=== PATIENT | male | born 1965 | race Caucasian/White ===

== ENCOUNTER 2017-09-17 12:11 | Inpatient (IN) ==
[~2017-09-17 12:11] MED LIST: Glycopyrrolate Inj 1 MG/5 ML Syringe IV.PUSH ONE; Lidocaine PF 1% Inj 5 ML Syringe INFILTRATN ONE; Neostigmine Inj 5 MG/5 ML Syringe IV.PUSH ONE; Phenylephrine/NS 1000 MCG/10ML Syringe IV.PUSH ONE
[2017-09-17] MEDS ORDERED: Chlorhexidine Gluconate 2% 1 Pack (2 Cloths) TOPICAL SCH (12:45)
[2017-09-17] MEDS ORDERED: Metoprolol Tartrate 25 MG Tablet PO SCH (12:45)
[2017-09-17] MEDS ORDERED: Vancomycin Inj 1 GM/200 ML PIGGYBACK IV.SIG ONE (12:52)
[2017-09-17] MEDS ORDERED: ceFAZolin Inj 2,000 MG in Sodium Chlor 0.9% Inj 100 ML IV.SIG SCH (12:58)
[2017-09-17] MEDS ORDERED: Chlorhexidine 4% Topical 120 APPLIC/120 ML Bottle TOPICAL SCH (13:00)
[2017-09-17] MEDS ORDERED: Sodium Chlor 0.9% Inj 500 ML IV.SIG SCH (13:00)
[2017-09-17] MEDS ORDERED: Vancomycin Inj 1 GM/200 ML PIGGYBACK IV.SIG SCH (13:00)
[2017-09-17] MEDS ORDERED: Zolpidem Tartrate 5 MG Tablet PO PRN (16:34)
[2017-09-17] MEDS ORDERED: Bisacodyl 10 MG Supp RECTAL PRN (16:34)
[2017-09-17] MEDS ORDERED: Post-op Orders (for Pharmacy) OTHER STA (16:34)
[2017-09-17] MEDS ORDERED: *Meperidine Inj 25 MG/ML Vial PERIprocedural Use ONLY ONE (16:42)
--- NOTE | 2017-09-17 16:45 | P.DCO ---
- Physical Therapy Physical Therapy: Gait training, Transfer training, bed to chair Hip: Total hip, Protocol: Left, Posterior hip precautions Knee: Protocol: Left, Full weight bearing Canvas Knee Splint: When in bed with 2 pillows between thighs Right Lower Extremity Weight Bearing: Weight bearing as tolerated Left Lower Extremity Weight Bearing: Weight bearing as tolerated - Nursing RN: 3 days/week x 2 weeks Nursing: Dressing changes (clean incision with alcohol and apply dry sterile dressing ) Additional instructions: aspirin 81 mg bid x 4 weeks dvt prop - Certification Need for Home Health services: I have seen patient Luther Juarez on 09/17/17. My clinical findings support the need for the requested home health care services because: Need for Home Health Services: High risk of falls Homebound Certification: I certify that my clinical findings support that this patient is homebound because: Homebound Certification: Post-op weakness
[2017-09-17] MEDS ORDERED: fentaNYL Citrate Inj 100 MCG/2 ML Ampul ONE (16:50)
[2017-09-17] MEDS ORDERED: *morphine SULFATE 4 MG/ML PERIprocedure ONLY ONE (16:54)
--- NOTE | 2017-09-17 17:24 | XR ---
EXAM DATE: 09/17/2017 5:04 PM EDT AGE/SEX: 52 years / Male INDICATIONS: Post left hip arthroplasty CLINICAL DATA: This is the patient's initial encounter. Patient reports that signs and symptoms have been present for 1 day and indicates a pain score of 3/10. MEDICAL/SURGICAL HISTORY: Arthritis. None. COMPARISON: No prior exams available for comparison. FINDINGS: Postoperative left total hip replacement. Normal alignment. No complications identified. Air in the s oft tissues. Previous fusion lower lumbar spine. CONCLUSION: Postoperative left total hip replacement. Normal alignment. Electronically signed by: Jeet Cuevas MD 09/17/2017 5:22 PM EDT
[2017-09-17] MEDS ORDERED: Dextrose 50% in Water 50 ML Vial IV.PUSH PRN (17:40)
[2017-09-17] MEDS: Senna/Docusate Sodium 8.6/50 MG Tablet PO SCH (21:06)
[2017-09-17] MEDS: Morphine Inj 4 MG/ML Vial IV.PUSH PRN (21:26)
[2017-09-18] MEDS: Morphine Inj 4 MG/ML Vial IV.PUSH PRN ×5 (01:48→20:54)
[2017-09-18 06:44] LABS: Baso # (Auto) 0.1 th/mm3 (0.0-0.2); Baso % (Auto) 0.8 % (0.0-2.0); Eos # (Auto) 0.1 th/mm3 (0.0-0.4); Eos % (Auto) 0.7 % (0.0-4.0); Hematocrit 35.2 % (39.0-51.0); Hemoglobin 12.2 gm/dL (13.0-17.0); Lymph % (Auto) 24.1 % (9.0-44.0); Mean Corpuscular HGB Conc 34.6 % (32.0-36.0); Mean Corpuscular Hemoglobin 33.1 pg (27.0-34.0); Mean Corpuscular Volume 95.8 fL (80.0-100.0); Mean Platelet Volume 9.1 fL (7.0-11.0); Mono # (Auto) 0.8 th/mm3 (0.0-0.9); Mono % (Auto) 9.9 % (0.0-8.0); Neut # (Auto) 5.5 th/mm3 (1.8-7.7); Neut % (Auto) 64.5 % (16.0-70.0); Platelet Count 168 th/mm3 (150-450); Red Blood Count 3.68 mil/mm3 (4.50-5.90); Red Cell Distribution Width 13.3 % (11.6-17.2); White Blood Count 8.5 th/mm3 (4.0-11.0)
[2017-09-18 07:01] LABS: Albumin 3.2 g/dL (3.4-5.0); Anion Gap 7 meq/L (5-15); Aspartate Aminotransferase 49 U/L (15-37); Blood Urea Nitrogen 17 mg/dL (7-18); Calcium 8.4 mg/dL (8.5-10.1); Carbon Dioxide 30.3 meq/L (21.0-32.0); Chloride 98 meq/L (98-107); Glomerular Filtration Rate 67 mL/min (>89); Glucose,Random 154 mg/dL (74-106); Potassium 4.1 meq/L (3.5-5.1); Sodium 135 meq/L (136-145)
[2017-09-18 07:06] LABS: Alanine Aminotransferase 81 U/L (12-78); Alkaline Phosphatase 51 U/L (45-117); Creatine Kinase 262 U/L (39-308); Total Protein 6.2 g/dL (6.4-8.2)
--- NOTE | 2017-09-18 07:09 | P.PNOP ---
Subjective Interval history: POD#1 L THR No chest pain;No SOB Patient wishes to go home today Physical Exam Vital signs: Vital Signs 09/17/17 13:07 09/17/17 16:41 09/17/17 17:12 Temperature 98.8 F 98.6 F Pulse Rate 78 88 88 Respiratory Rate 16 16 16 Blood Pressure 117/75 129/83 107/58 L Pulse Oximetry 95 95 95 09/17/17 17:50 09/17/17 19:17 09/17/17 23:29 Temperature 97.4 F L 97.4 F L 98.5 F Pulse Rate 74 72 63 Respiratory Rate 18 18 18 Blood Pressure 88/55 L 110/64 120/64 Pulse Oximetry 98 100 97 09/18/17 05:23 Temperature 98.4 F Pulse Rate 72 Respiratory Rate 18 Blood Pressure 106/56 L Pulse Oximetry 97 Intake & Output 09/17/17 09/17/17 09/18/17 06:59 18:59 06:59 Intake Total 1200 / 1200 820 / 820 Output Total 250 / 250 Balance 950 / 950 820 / 820 Weight 98.4 kg 98.4 kg Intake: IV 1200 / 1200 100 / 100 LR 1000 mL Inj 1,000 ML @ 30 1000 / 1000 mls/hr IV.SIG .Q24H NAVARRO Rx#: [id number] Vancomycin Inj 1 gm In 200 ml @ 200 / 200 0 mls/hr IV.SIG .STK-MED ONE Rx#:[id number] Ancef Inj 1,000 MG In NS Inj 100 / 100 100 ML @ 200 mls/hr IV.SIG Q6H [facility]ARRO Rx#:[id number] Oral 720 / 720 Output: Estimated Blood Loss 250 / 250 Other: # Voids 3 Date of Last Bowel Movement 09/16/17 # Incontinent Bowel Movements 0 Weight On Admission 98.4 kg - Routine HEENT Exam Comments: N/V intact No LLD Neg anisha's;no calf tenderness Results - Labs CBC & Chem 7: 09/18/17 05:04 09/18/17 05:04 Laboratory Results - last 24 hr 09/17/17 09/17/17 09/17/17 12:48 16:57 19:48 WBC RBC Hgb Hct MCV MCH MCHC RDW Plt Count MPV Neut % (Auto) Lymph % (Auto) [place] % (Auto) Eos % (Auto) Baso % (Auto) Neut # (Auto) Lymph # (Auto) [place] # (Auto) Eos # (Auto) Baso # (Auto) WBC Differential Differential Comment POC Glucose 174 H 174 H Blood Type O Positive Antibody Screen Negative MTS Gel Crossmatch See Detail 09/18/17 05:04 WBC 8.5 RBC 3.68 L Hgb 12.2 L Hct 35.2 L MCV 95.8 MCH 33.1 MCHC 34.6 RDW 13.3 Plt Count 168 MPV 9.1 Neut % (Auto) 64.5 Lymph % (Auto) 24.1 [place] % (Auto) 9.9 H Eos % (Auto) 0.7 Baso % (Auto) 0.8 Neut # (Auto) 5.5 Lymph # (Auto) 2.0 [place] # (Auto) 0.8 Eos # (Auto) 0.1 Baso # (Auto) 0.1 WBC Differential . Differential Comment Auto diff final POC Glucose Blood Type Antibody Screen MTS Gel Crossmatch - Imaging Impressions Hip X-Ray 09/17/17 00:00 CONCLUSION: Postoperative left total hip replacement. Normal alignment. Assessment and Plan - Problem List (1) Osteoarthritis of left hip Code(s): M16.12 - Unilateral primary osteoarthritis, left hip Status: Acute - Assessment and Plan Ortho stable Discharge home today C RN/PT Aspirin 81mg BID x 4 weeks,TEDS for DVT/PE prophylaxsis
[2017-09-18 07:19] LABS: Creatine Kinase MB 1.8 ng/mL (0.5-3.6)
[2017-09-18] MEDS: Insulin NovoLOG Aspart Correctional Sugar Inj SQ SCH ×3 (08:19→20:38)
[2017-09-18] MEDS: Glimepiride 2 MG Tablet PO SCH (08:50)
[2017-09-18] MEDS: Senna/Docusate Sodium 8.6/50 MG Tablet PO SCH ×2 (08:50→20:43)
[2017-09-18] MEDS: Multivitamin/Minerals Therapeutic Tablet PO SCH (08:50)
[2017-09-18] MEDS: Triamterene/HCTZ 37.5 MG/25 MG Tablet PO SCH (08:51)
[2017-09-18] MEDS: amLODIPine 5 MG Tablet PO SCH (08:52)
[2017-09-18] MEDS: hydrALAZINE 25 MG Tablet PO SCH (08:52)
[2017-09-18] MEDS ORDERED: Lisinopril 20 MG Tablet PO SCH (09:00)
--- NOTE | 2017-09-18 09:19 | MP ---
cc: Ceasar North MD,Tierra Barger, III,Kasey Lawton DATE OF OPERATION: 09/17/2017 PREOPERATIVE DIAGNOSES: 1. Left hip severe osteoarthritis. 2. Obesity. POSTOPERATIVE DIAGNOSES: 1. Left hip severe osteoarthritis. 2. Obesity. PROCEDURE PERFORMED: Left total hip arthroplasty. SURGEON: Ceasar North MD GARMENT PATTERNMAKER: Ashtyn Mandujano PA-C ANESTHESIA: General. ESTIMATED BLOOD LOSS: 250 mL COMPLICATIONS: None. DRAINS: None. My educational/development assistant, Ashtyn Mandujano PA-C, was present for the entirety of the surgical case. She was medically necessary for the entire case given the complexity of case and to facilitate the performance of the procedure, the seed laboratory technician was at the back table with this case and was not able to manipulate the instruments needed to use such as retractors, trial implants and permanent implants. DESCRIPTION OF PROCEDURE: The patient was brought to the operating room and had satisfactory anesthesia by the Department of Anesthesia. The patient was placed in the lateral decubitus position. Because of the patient's obesity, great care was made to protect all pressure points. The left hip and lower extremity was prepped and draped in the usual sterile manner. Small posterolateral exposure to the hip was made. All bleeders were coagulated. Dissection of skin and subcutaneous tissue. The fascia sara and gluteus polo were incised in line with the skin incision. The short external rotators removed and gripped. Hip abductors were preserved. Hip capsulotomy performed. The hip was dislocated posteriorly. The patient was found to have severe osteoarthritis involving the hip joint. The preparation to the acetabulum made. Surgical removal of the acetabular labrum and capsule was performed. Multiple hemispherical reamers were then used to initially deepen the acetabulum and then widened it down to the subchondral plate. A trial reduction was made with a 53 mm bicentric cup in a press-fit type manner, was found to have an excellent fit and fill. Exposure and surgical treatment of the proximal femur was performed. Using the [employer] system, it was sequentially broached to a #12 broach. Standard offset, 0 neck, 28 mm ball was then used onto the trunnion. The hip was reduced. The patient was found to have satisfactory limb lengths, satisfactory stability and satisfactory range of motion of the hip. The hip was again dislocated posteriorly and all trial components were removed. Preparation for insertion of the prosthesis was made. The hip wound was irrigated with copious amounts of sterile saline, antibiotic solution, using Waterpik irrigation system. A 12 standard offset stem placed in anatomic position, approximately 15 degrees of anteversion, with excellent fit and fill. A -3 neck, 28 mm ceramic head was then used and assembled onto the trunnion with the 53 mm cup. The hip was then reduced. Again, the patient was found to have satisfactory limb lengths, satisfactory range of motion and satisfactory stability to the hip. The wound was irrigated with copious amounts of sterile saline, antibiotic solution. The wound was dry. The short external rotators were repaired as a group back to greater trochanter with drill holes using #2 Ti-Cron suture. Fascia sara was closed in line with the skin incision with #2 Ti-Cron suture. Subcuticular layers with 0 Vicryl and 2-0 Vicryl. Skin was approximated with running subcuticular 2-0 nylon suture. Sterile dressings were applied. The patient tolerated the procedure well, brought to recovery room in stable and satisfactory condition. MD ALEM Zamora/MANUEL , 04:30 PM , 04:40 PM DONOVAN
--- NOTE | 2017-09-18 13:01 | P.CON ---
History of Present Illness Service: [facility]/HEPAs Consult date: 09/17/17 Requesting Physician: Ashtyn Mandujano Reason for Consult: Medical management Primary Care Provider: PROVIDER NON STAFF Family Provider: PROVIDER NON STAFF Chief Complaint: "I had a hip replacement" History of Present Illness: 52-year-old male with past medical history significant for arthritis, HTN, HLD, diabetes, and GERD. Patient with severe left hip osteoarthritis status post total left hip arthroplasty on 09/17 by . [facility] consulted due to assist with medical management. Patient is seen and examined sitting up up in bed in no acute distress. Patient reports some hip pain but states this is tolerable. He has been able to get in and out of bed with assistance and has been using the bathroom without any diarrhea, constipation, or dysuria. He denies any fevers, chills, nausea, vomiting, headache, dizziness, cough, shortness of breath or chest pain. Spoke with nurse reports patient noncompliant with Accu- Cheks. Patient takes metformin and glipizide at home. Possible discharge home today pending delivery of bedside commode in wheeled walker to his room today. Review of Systems All other systems reviewed negative except as stated in HPI PMFSH - History History Provided By: Patient - Medical History Medical History: Medical History (Last Reviewed 09/18/17 @ 14:05 by Negra Keenan) Arthritis Dental crown present Diabetes GERD (gastroesophageal reflux disease) Hard of hearing Hyperlipidemia Hypertension Joint pain Wears eyeglasses - Surgical History Surgical History: Surgical History (Last Reviewed 09/18/17 @ 14:05 by Negra Keenan) History of lumbar fusion - Tobacco History Second Hand Smoke Exposure: No Tobacco Use In Past 30 Days: Yes Smoking Status: Heavy tobacco smoker Tobacco Type: Cigarettes - Alcohol History How Often Do You Have a Drink Containing Alcohol: 2 to 3 times a week - Substance Use History Substance History: No History of Abuse - Immunization History Tetanus Immunization: Unsure Hx Influenza Vaccine This Season: No Medications and Allergies Active Medications: Active Medications Hydrocodone Bitart/Acetaminophen ([place] 7.5/325) 2 tab PO Q6H PRN PRN Reason: PAIN SCALE 5 TO 10 Last Admin: 09/18/17 11:58 Dose: 2 tab Hydrocodone Bitart/Acetaminophen ([place] 7.5/325) 1 tab PO Q4H PRN PRN Reason: PAIN LESS THAN 5 ON SCALE Last Admin: 09/18/17 08:45 Dose: 1 tab Al Hydroxide/Mg Hydroxide (Milk Of Magntita Liq) 30 ml PO BID PRN PRN Reason: Mild Constipation Amlodipine Besylate (Norvasc) 2.5 mg PO DAILY [facility] Last Admin: 09/18/17 08:52 Dose: 2.5 mg Aspirin (Aspirin Chew) 81 mg PO BID [facility] Last Admin: 09/18/17 08:51 Dose: 81 mg Atorvastatin Calcium (Lipitor) 10 mg PO EVERY OTHER DAY [facility] Bisacodyl (Dulcolax Supp) 10 mg RECTAL DAILY PRN PRN Reason: SEVERE CONSITIPATION Chlorhexidine Gluconate (Chlorhexidine 2% Cloth) 3 pack [employer]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 [facility] Stop: 09/20/17 12:44 Last Admin: 09/17/17 12:30 Dose: 3 pack Chlorhexidine Gluconate (Hibiclens 4% Topical) 1 applicatio TOPICAL ONCE [facility] Stop: 09/21/17 12:59 Last Admin: 09/17/17 12:45 Dose: 1 applicatio Dextrose (D50w Vial) 50 ml IV.PUSH UNSCH PRN PRN Reason: PER HYPOGLYCEMIA PROTOCOL [facility] ([facility] Last Admin: 09/18/17 08:50 Dose: 2 mg Glucagon (Glucagon Inj) 1 mg OTHER PRN PRN PRN Reason: for Hypoglycemia Protocol Hydralazine HCl (Apresoline) 25 mg PO DAILY [facility] Last Admin: 09/18/17 08:52 Dose: 25 mg Lactated Ringer's (Lr 1000 Ml Inj) 1,000 mls @ 30 mls/hr IV.SIG .Q24H [facility] Stop: 09/20/17 12:44 Last Admin: 09/18/17 08:17 Dose: Not Given Sodium Chloride (Ns Inj) 500 mls @ 30 mls/hr IV.SIG .Q10H [facility] Stop: 09/20/17 12:44 Vancomycin/Sodium Chloride (Vancomycin Inj) 1 gm in 200 mls @ 200 mls/hr IV.SIG [employer] [facility] Stop: 09/21/17 12:59 Cefazolin Sodium 2,000 mg/ (Sodium Chloride) 120 mls @ 240 mls/hr IV.SIG [employer] [facility] Stop: 09/21/17 12:57 Insulin Aspart (Novolog Insulin Correctional Sugar Inj) 0 unit SQ ACHS [facility]; Protocol Last Admin: 09/18/17 09:11 Dose: Not Given Lactulose (Lactulose Liq) 30 ml PO DAILY PRN PRN Reason: SEVERE CONSITIPATION Lisinopril (Prinivil) 40 mg PO DAILY [facility] Last Admin: 09/18/17 08:50 Dose: 40 mg Metformin HCl (Glucophage) 1,000 mg PO BID [facility] Last Admin: 09/18/17 08:50 Dose: 1,000 mg Metoprolol Tartrate (Lopressor) 25 mg PO [employer] [facility] Stop: 09/20/17 12:44 Miscellaneous (Pill Splitter) 1 each OTHER UNSCH [facility] Miscellaneous Information ([facility]) 1 each OTHER UNSCH PRN PRN Reason: SEE LABEL COMMENTS Stop: 09/18/17 17:04 Morphine Sulfate (Morphine Inj) 4 mg IV.PUSH Q3H PRN PRN Reason: BREAKTHROUGH PAIN Last Admin: 09/18/17 10:42 Dose: 4 mg Multivitamins/Minerals (Theragran-M) 1 tab PO DAILY [facility] Last Admin: 09/18/17 08:50 Dose: 1 tab Pantoprazole Sodium (Protonix) 40 mg PO DAILY [facility] Last Admin: 09/18/17 08:52 Dose: 40 mg Senna/Docusate Sodium (Kassy-Colace) 1 tab PO BID [facility] Last Admin: 09/18/17 08:50 Dose: 1 tab Sennosides (Senokot) 17.2 mg PO BID PRN PRN Reason: Moderate Constipation Sodium Chloride (Ns Flush) 2 ml IV.FLUSH BID [facility] Last Admin: 09/18/17 08:54 Dose: 2 ml Sodium Chloride (Ns Flush) 2 ml IV.FLUSH PRN PRN PRN Reason: FLUSH AFTER USING IV ACCESS Triamterene/HCTZ (Maxzide 37.5 Mg-25 Mg) 1 tab PO DAILY [facility] Last Admin: 09/18/17 08:51 Dose: 1 tab Zolpidem Tartrate (Ambien) 5 mg PO HS PRN PRN Reason: INSOMNIA Allergies Allergy/AdvReac Type Severity Reaction Status Date / Time Iodinated Contrast- Oral and Allergy Severe Flushing Verified 09/17/17 12:59 IV Dye [Contrast] Home Medications Medication Instructions Recorded Confirmed Type amlodipine 2.5 mg PO DAILY 09/14/17 09/17/17 History atorvastatin [Lipitor] 1 tab PO EVERY OTHER DAY 09/14/17 09/17/17 History glimepiride 2 mg PO QAM 09/14/17 09/17/17 History hydralazine 25 mg PO DAILY 09/14/17 09/17/17 History lisinopril 40 mg PO DAILY 09/14/17 09/17/17 History meloxicam 15 mg PO DAILY 09/14/17 09/17/17 History metformin 1,000 mg PO BID 09/14/17 09/17/17 History pantoprazole 40 mg PO DAILY 09/14/17 09/17/17 History triamterene-hydrochlorothiazid 1 tab PO DAILY 09/14/17 09/17/17 History multivit with min-folic acid 1 tab PO DAILY 09/17/17 09/17/17 History [Adult One Daily Multivitamin] Physical Exam Vital signs: Vital Signs 09/17/17 13:07 09/17/17 16:41 09/17/17 17:12 Temperature 37.1 C 37.0 C Pulse Rate 78 88 88 Respiratory Rate 16 16 16 Blood Pressure 117/75 129/83 107/58 L Pulse Oximetry 95 95 95 09/17/17 17:50 09/17/17 19:17 09/17/17 23:29 Temperature 36.3 C L 36.3 C L 36.9 C Pulse Rate 74 72 63 Respiratory Rate 18 18 18 Blood Pressure 88/55 L 110/64 120/64 Pulse Oximetry 98 100 97 09/18/17 05:23 09/18/17 08:00 09/18/17 12:00 Temperature 36.9 C 37.1 C 36.8 C Pulse Rate 72 73 81 Respiratory Rate 18 16 16 Blood Pressure 106/56 L 106/56 L 104/59 L Pulse Oximetry 97 97 97 Intake & Output 09/17/17 09/18/17 09/18/17 18:59 06:59 18:59 Intake Total 1200 / 1200 920 / 920 Output Total 250 / 250 Balance 950 / 950 920 / 920 Weight 98.4 kg 98.4 kg Intake: IV 1200 / 1200 200 / 200 LR 1000 mL Inj 1,000 ML @ 30 1000 / 1000 mls/hr IV.SIG .Q24H [facility]ARRO Rx#: [id number] Vancomycin Inj 1 gm In 200 ml @ 200 / 200 0 mls/hr IV.SIG .STK-MED ONE Rx#:[id number] Ancef Inj 1,000 MG In NS Inj 200 / 200 100 ML @ 200 mls/hr IV.SIG Q6H [facility]ARRO Rx#:[id number] Oral 720 / 720 Output: Estimated Blood Loss 250 / 250 Other: # Voids 3 Date of Last Bowel Movement 09/16/17 # Incontinent Bowel Movements 0 Weight On Admission 98.4 kg Narrative: GENERAL: Well-developed, well-nourished, adult male resting in bed in no acute distress. SKIN: Warm and dry. HEAD: Atraumatic. Normocephalic. EYES: Pupils equal and round. No scleral icterus. No injection or drainage. ENT: No nasal bleeding or discharge. Mucous membranes pink and moist. NECK: Trachea midline. No JVD. CARDIOVASCULAR: Regular rate and rhythm. RESPIRATORY: No accessory muscle use. Clear to auscultation. Breath sounds equal bilaterally. GASTROINTESTINAL: Abdomen soft, non-tender, nondistended. + Bowel sounds in all quadrants. MUSCULOSKELETAL: Extremities without clubbing, cyanosis, or edema. No obvious deformities. Left hip dressing dry and intact. NEUROLOGICAL: Awake and alert. No obvious cranial nerve deficits. Motor grossly within normal limits. Left lower extremity strength limited due to surgery and pain. Normal speech. PSYCHIATRIC: Appropriate mood and affect; insight and judgment normal. Assessment and Plan - Plan 52-year-old male with past medical history significant for arthritis, HTN, HLD, diabetes, and GERD. Patient with severe left hip osteoarthritis status post total left hip arthroplasty on 09/17 by . [facility] consulted due to assist with medical management. Severe left hip arthritis -Status post total hip arthroplasty on 09/[address] North -As needed [place] for pain with bowel regimen -Postop CBC this morning stable, CMP stable, mildly elevated liver enzymes, and mild hyponatremia noted. -PT, wound dressings and monitor for signs of infection. Diabetes mellitus -Continue diabetic diet, metformin, Glimepiride, Accu-Cheks with insulin scale coverage as needed HTN HLD -Continue home dose hydralazine, lisinopril, Maxzide, Norvasc and statin. -BP so far stable, continue to monitor Elevated liver enzymes, mild -Recheck liver enzymes tomorrow if patient is still here -If he is discharged he will need to have outpatient labs to reevaluate liver enzymes and follow-up with PCP to determine if these have normalized. -If not normalized may need to discontinue statin and follow-up with his PCP for further workup DVT prophylaxis-aspirin Thank you for this consultation, will continue to follow patient while he is here. Discussed Condition With: Patient, RN, family at bedside.
--- NOTE | 2017-09-18 23:15 | ECG ---
Date Performed: 09/18/2017 Time Performed: 02:00:00 PTAGE: 52 years EKG: Sinus rhythm Normal ECG NO PREVIOUS TRACING DOCTOR: Matt Jaimes Interpretating Date/Time 09/18/2017 23:14:18
[2017-09-19] MEDS: Morphine Inj 4 MG/ML Vial IV.PUSH PRN ×3 (01:15→09:53)
[2017-09-19 01:34] VITALS: O2SAT 96
[2017-09-19 05:26] LABS: Hematocrit 32.2 % (39.0-51.0)
[2017-09-19 05:46] VITALS: RESP 18
[2017-09-19 05:47] LABS: Albumin 3.1 g/dL (3.4-5.0)
[2017-09-19 05:48] LABS: Total Protein 6.4 g/dL (6.4-8.2)
--- NOTE | 2017-09-19 07:20 | P.PNOP ---
Subjective Interval history: pt doing well, blood pressure has normalized, feeling good, minimal hip pain Physical Exam Vital signs: Vital Signs 09/18/17 08:00 09/18/17 12:00 09/18/17 16:00 Temperature 98.7 F 98.3 F 98.4 F Pulse Rate 73 81 76 Respiratory Rate 16 16 16 Blood Pressure 106/56 L 104/59 L 117/59 L Pulse Oximetry 97 97 96 09/18/17 20:32 09/19/17 00:00 09/19/17 00:30 Temperature 99.4 F 99.5 F Pulse Rate 82 83 Respiratory Rate 18 16 15 Blood Pressure 106/55 L 121/62 Pulse Oximetry 98 96 09/19/17 04:00 Temperature 98.6 F Pulse Rate 88 Respiratory Rate 18 Blood Pressure 119/61 Pulse Oximetry 96 Intake & Output 09/18/17 09/19/17 09/19/17 18:59 06:59 18:59 Intake Total 1320 / 1320 Output Total 1350 / 1350 Balance -30 / -30 Weight 96 kg Intake: Oral 1320 / 1320 Output: Urine 1100 / 1100 Estimated Blood Loss 250 / 250 Other: # Voids 3 Date of Last Bowel Movement 09/16/17 09/16/17 # Incontinent Bowel Movements 0 Narrative: seen with in room left hip dressing dry and intact canvas knee splint in place no calf tenderness Results - Labs CBC & Chem 7: 09/19/17 03:50 09/18/17 05:04 Laboratory Results - last 24 hr 09/18/17 09/18/17 09/18/17 05:04 08:48 11:57 Hgb Hct POC Glucose 200 H 170 H Total Bilirubin Direct Bilirubin Indirect Bilirubin AST ALT Alkaline Phosphatase CK-MB (CK-2) 1.8 Total Protein Albumin 09/18/17 09/18/17 09/19/17 17:18 20:49 03:50 Hgb Hct POC Glucose 192 H 212 H Total Bilirubin 0.3 Direct Bilirubin 0.1 Indirect Bilirubin 0.2 AST 28 ALT 54 Alkaline Phosphatase 74 CK-MB (CK-2) Total Protein 6.4 Albumin 3.1 L 09/19/17 03:50 Hgb 11.0 L Hct 32.2 L POC Glucose Total Bilirubin Direct Bilirubin Indirect Bilirubin AST ALT Alkaline Phosphatase CK-MB (CK-2) Total Protein Albumin Assessment and Plan - Problem List (1) Osteoarthritis of left hip Code(s): M16.12 - Unilateral primary osteoarthritis, left hip Status: Acute - Assessment and Plan POD # 2 s/p L YING Ortho stable, blood pressure has normalized Discharge home today with [facility] Aspirin 81mg BID x 4 weeks,TEDS for DVT/PE prophylaxsis
[2017-09-19] MEDS: Insulin NovoLOG Aspart Correctional Sugar Inj SQ SCH ×2 (07:43→08:38)
[2017-09-19 08:35] VITALS: BP 122/81; PULSE 85; TEMP 97.7
[2017-09-19] MEDS: amLODIPine 5 MG Tablet PO SCH (08:36)
[2017-09-19] MEDS: hydrALAZINE 25 MG Tablet PO SCH (08:36)
[2017-09-19] MEDS: Multivitamin/Minerals Therapeutic Tablet PO SCH (08:39)
[2017-09-19] MEDS: Senna/Docusate Sodium 8.6/50 MG Tablet PO SCH (08:39)
[2017-09-19] MEDS: Triamterene/HCTZ 37.5 MG/25 MG Tablet PO SCH (08:45)
[2017-09-19] MEDS: Glimepiride 2 MG Tablet PO SCH (08:45)
== END 2017-09-19 12:58 | disposition home health service (06) ==
LOC: HSDI 12:11 → N06 17:25
PROVIDERS: ADMIT Orthopaedic Surgery Orthopaedic Surgery of the Spine; ATTEND Orthopaedic Surgery Orthopaedic Surgery of the Spine